=== PATIENT | male | born 2000 | race African-American/Black ===

== ENCOUNTER 2022-09-04 08:07 | Emergency (ER) | payer BC ==
[~2022-09-04] VITALS: Ht 182.9 cm; Wt 141.0 kg
[2022-09-04] MEDS ORDERED: IBUPROFEN 400MG TABLET PO ONE (08:45)
[2022-09-04] MEDS ORDERED: AMOX1TAB16 MT (08:48)
[2022-09-04] MEDS ORDERED: IBUP-2028 MT (08:48)
[2022-09-04 09:02] VITALS: BP 134/76
== END 2022-09-04 09:12 | disposition home or self-care (01) ==
LOC: ER 08:07
DX: H00.014 Hordeolum externum left upper eyelid (principal)
CPT/HCPCS: 99283